=== PATIENT | female | born 2000 | race Caucasian/White ===

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

== ENCOUNTER 2019-01-19 06:57 | Inpatient (IN) | payer MEDICAID ==
[2019-01-19] MEDS ORDERED: CARBOPROST 250 MCG/ML SOL IM PRN (12:53)
[2019-01-19] MEDS ORDERED: FENTANYL 100MCG/2ML SOL IV PRN (12:53)
[2019-01-19] MEDS ORDERED: MEPIVACAINE HCL 1% MPF 30 ML/VIAL SOL INFIL PRN (12:53)
[2019-01-19] MEDS ORDERED: LACTATED RINGERS 1,000 ML IV PRN (12:53)
[2019-01-19] MEDS ORDERED: METHYLERGONOVINE MALEATE 0.2 MG/ML SOL IM PRN (12:53)
[2019-01-19] MEDS ORDERED: OXYTOCIN 10000 MU/ML SOL IM PRN (12:53)
[2019-01-19] MEDS: SODIUM CHLORIDE 0.9% FLUSH 10 ML SOL IV SCH ×2 (13:10→22:06)
[2019-01-19 13:14] LABS: BASOPHILS % (AUTO) 1 % (0-3); EOSINOPHILS % (AUTO) 0 % (0-9); HEMATOCRIT 43 % (35-47); HEMOGLOBIN 14.4 gm/dl (12.0-15.5); LYMPHOCYTES % (AUTO) 9.4 % (10-50); MEAN CORPUSCULAR HEMOGLOBIN 30.1 pg (27.0-32.0); MEAN CORPUSCULAR HGB CONC 33.9 gm/dl (32.0-36.0); MEAN CORPUSCULAR VOLUME 89 fL (81-99); NEUTROPHILS % (AUTO) 84.9 % (37-80)
[2019-01-19] MEDS ORDERED: DIPHENHYDRAMINE 50 MG/ML SOL IV PRN (14:41)
[2019-01-19] MEDS ORDERED: NALBUPHINE HCL 20 MG/ML SOL IV PRN (14:41)
[2019-01-19] MEDS ORDERED: NALOXONE HYDROCHLORIDE 0.4 MG/ML SOL IV PRN (14:41)
[2019-01-19] MEDS ORDERED: EPHEDRINE SULFATE 50 MG/ML SOL IV PRN (14:41)
[2019-01-19] MEDS: SODIUM CHLORIDE 0.9% FLUSH 10 ML SOL IV PRN ×2 (14:44→17:59)
[2019-01-19] MEDS: LACTATED RINGERS 1,000 ML IV SCH ×2 (14:45→15:00)
[2019-01-19] MEDS ORDERED: LACTATED RINGERS 1,000 ML IV SCH (14:45)
[2019-01-19] MEDS ORDERED: FENTANYL 250 MCG/ 5ML SOL ONE (14:52)
[2019-01-19] MEDS ORDERED: LIDOCAINE HCL 2% MPF 10 ML SOL ONE ×2 (14:52→16:43)
[2019-01-19] MEDS ORDERED: LIDOCAINE 1% W/EPI MPF 30 ML SOL ONE (14:53)
[2019-01-19] MEDS ORDERED: ROPIVACAINE HYDROCHLORIDE 5 MG/ML SOL ONE (14:53)
[2019-01-19] MEDS ORDERED: APAP/HYDROCODONE 1 EACH TABLET PO PRN (17:44)
[2019-01-19] MEDS ORDERED: FLEET ENEMA PR PRN (17:44)
[2019-01-19] MEDS ORDERED: METHYLERGONOVINE MALEATE 0.2 MG TAB PO PRN (17:44)
[2019-01-19] MEDS ORDERED: TEMAZEPAM 15MG 15 MG CAP PO PRN (17:44)
[2019-01-19] MEDS ORDERED: BENZOCAINE/MENTHOL 1 SPR TOP PRN (17:44)
[2019-01-19] MEDS ORDERED: BISACODYL 10 MG SUP PR PRN (17:44)
[2019-01-19] MEDS: IBUPROFEN 600 MG TAB PO PRN (20:15)
[2019-01-19] MEDS: MULTIVITAMIN2 1 EA TAB PO SCH (22:04)
[2019-01-19] MEDS: DOCUSATE SODIUM 100 MG SGL PO SCH (22:04)
[2019-01-19] MEDS: FOLIC ACID 1 MG TAB PO SCH (22:04)
[2019-01-20] MEDS: SODIUM CHLORIDE 0.9% FLUSH 10 ML SOL IV SCH ×2 (06:51→13:26)
[2019-01-20] MEDS: IBUPROFEN 600 MG TAB PO PRN ×3 (08:33→22:21)
[2019-01-20] MEDS: DOCUSATE SODIUM 100 MG SGL PO SCH ×2 (08:33→20:09)
[2019-01-20] MEDS: WITCH HAZEL 1 EA PAD TOP PRN ×2 (08:34→08:35)
[2019-01-20] MEDS: MULTIVITAMIN2 1 EA TAB PO SCH (20:09)
[2019-01-20] MEDS: FOLIC ACID 1 MG TAB PO SCH (20:09)
[2019-01-21] MEDS: DOCUSATE SODIUM 100 MG SGL PO SCH (09:02)
[2019-01-21] MEDS: IBUPROFEN 600 MG TAB PO PRN ×2 (09:02→09:05)
[2019-01-21 09:08] VITALS: BP 115/76; PULSE 83; RESP 20; TEMP 97.9; O2SAT 96
== END 2019-01-21 11:45 | disposition home or self-care (01) | DRG 807 ==
LOC: OBOP 06:57 → OB 06:58 → UNDOADMOB 06:58 → OB 06:58 → OBOP 09:03 → UNDOADMOB 09:04 → OB 09:04 → OBSVTOIN 13:00 → INTOOBSV 13:00 → UNDODISIN 01-21 11:45
PROVIDERS: ADMIT Family Medicine; ATTEND Family Medicine
PROC: 10D07Z6 Extraction of Products of Conception, Vacuum, Via Natural or Artificial Opening (ICD-10-PCS; principal; 2019-01-19)
PROC: 0KQM0ZZ Repair Perineum Muscle, Open Approach (ICD-10-PCS; 2019-01-19)
PROC: 10907ZC Drainage of Amniotic Fluid, Therapeutic from Products of Conception, Via Natural or Artificial Opening (ICD-10-PCS; 2019-01-19)
PROC: 6A550ZT Pheresis of Cord Blood Stem Cells, Single (ICD-10-PCS; 2019-01-19)
DX: O66.5 Attempted application of vacuum extractor and forceps (principal); Z37.0 Single live birth; Z3A.39 39 weeks gestation of pregnancy; O76 Abnormality in fetal heart rate and rhythm complicating labor and delivery
CPT/HCPCS: 36415; 59025; 85018; 85025; J0670; J2590; J2795; J3010; A9270-GY